=== PATIENT | female | born 1985 | race African-American/Black ===

== ENCOUNTER 2017-05-11 09:21 | Emergency (ER) | payer BC ==
[~2017-05-11] VITALS: Ht 154.9 cm; Wt 127.9 kg
[~2017-05-11 09:21] MED LIST: FLAGYL500 MG PO; IBUPROFEN 600600 M1 PO; LEXAPRO 10 MG T10 M2 PO; NORCO 5-325 TA1 EACH PO; TOBRAMYCIN SULFA5 ML IO; TOBREX5 ML OPHTHALMIC
[2017-05-11] MEDS ORDERED: NOHOMEMEDICATIONS (09:41)
[2017-05-11] MEDS ORDERED: MUCINEX DM ER1 EACH PO (10:58)
[2017-05-11 11:20] VITALS: BP 129/91
== END 2017-05-11 11:24 | disposition home or self-care (01) ==
LOC: ER 09:21
DX: J06.9 Acute upper respiratory infection, unspecified (principal); F41.9 Anxiety disorder, unspecified

== ENCOUNTER 2018-09-06 14:09 | Emergency (ER) | payer OTHER ==
[~2018-09-06] VITALS: Ht 154.9 cm; Wt 98.4 kg
[~2018-09-06 14:09] MED LIST changes: +MUCINEX DM ER1 EACH PO; +NOHOMEMEDICATIONS
[2018-09-06] MEDS ORDERED: HYDROCODONE-AP1 EAC6 PO (14:58)
[2018-09-06 15:44] VITALS: BP 122/65
== END 2018-09-06 15:45 | disposition home or self-care (01) ==
LOC: ER 14:09
DX: M53.3 Sacrococcygeal disorders, not elsewhere classified (principal); F41.9 Anxiety disorder, unspecified; Z98.890 Other specified postprocedural states

== ENCOUNTER 2018-11-17 17:34 | Emergency (ER) | payer OTHER ==
[~2018-11-17] VITALS: Ht 154.9 cm; Wt 93.4 kg
[~2018-11-17 17:34] MED LIST changes: +HYDROCODONE-AP1 EAC6 PO
[2018-11-17] MEDS ORDERED: HUMIRA20 MG/0.4 SUBQ (17:39)
[2018-11-17] MEDS ORDERED: PROZAC20 MG PO (17:40)
[2018-11-17] MEDS ORDERED: NORCO 5-325 TA1 EAC1 PO (18:57)
[2018-11-17 20:28] VITALS: BP 119/82
== END 2018-11-17 20:15 | disposition home or self-care (01) ==
LOC: ER 17:34
DX: S92.151A Displaced avulsion fracture (chip fracture) of right talus, initial encounter for closed fracture (principal); F41.9 Anxiety disorder, unspecified; Z98.890 Other specified postprocedural states; X50.1XXA Overexertion from prolonged static or awkward postures, initial encounter; Y93.89 Activity, other specified; Y92.89 Other specified places as the place of occurrence of the external cause; Y99.8 Other external cause status

== ENCOUNTER 2019-04-23 08:20 | Emergency (ER) | payer OTHER ==
[~2019-04-23] VITALS: Ht 154.9 cm; Wt 90.7 kg
[~2019-04-23 08:20] MED LIST changes: +HUMIRA20 MG/0.4 SUBQ; +NORCO 5-325 TA1 EAC1 PO; +PROZAC20 MG PO
[2019-04-23] MEDS ORDERED: DOXYCYCLINE 10100 MG PO (10:03)
[2019-04-23] MEDS ORDERED: DIFLUCAN150 MG PO (10:24)
[2019-04-23 10:25] VITALS: BP 128/77
== END 2019-04-23 10:26 | disposition home or self-care (01) ==
LOC: ER 08:20
DX: L73.2 Hidradenitis suppurativa (principal); F41.9 Anxiety disorder, unspecified; Z98.890 Other specified postprocedural states